=== PATIENT | male | born 1955 | race Caucasian/White ===

== ENCOUNTER 2021-05-16 18:43 | Emergency (ER) | payer OTHER ==
[~2021-05-16] VITALS: Ht 172.7 cm; Wt 79.4 kg
[~2021-05-16 18:43] MED LIST: HYDACE5 PO; HYDACE5325 PO; MUPI1NAS; NAPR500 PO; OSEL75CA PO; PROM25 PO; SULTRIDS PO
[2021-05-16 19:41] LABS: BASOPHILS PERCENT AUTO 0 % (0-2); EOSINOPHILS PERCENT AUTO 0 % (0-6); Hematocrit 38.8 % (37.0-53.0); Hemoglobin 13.1 g/dL (13.5-17.5); IMMATURE GRAN ABSOLUTE AUTO 0.02 K/mm3 (0.00-0.10); IMMATURE GRAN PERCENT AUTO 1 % (0-1); LYMPHOCYTES PERCENT AUTO 14 % (21-46); MONOCYTES ABSOLUTE AUTO 0.25 K/mm3 (0.16-1.47); MONOCYTES PERCENT AUTO 9 % (4-13); Mean Corpuscular HGB 29.6 pg (26.0-34.0); Mean Corpuscular HGB Conc 33.8 g/dL (31.5-36.5); Mean Corpuscular Volume 88 fL (80-100); Mean Platelet Volume 9.6 fL (9.1-12.4); NEUTROPHILS ABSOLUTE AUTO 2.21 K/mm3 (1.96-9.15); NEUTROPHILS PERCENT AUTO 77 % (41-73); Platelet Count 136 K/mm3 (150-400); RDW Coefficient Variation 12.5 % (11.7-14.2); RDW Standard Deviation 40.4 fL (35.1-46.3); Red Blood Cell Count 4.43 M/mm3 (4.30-5.90); White Blood Cell Count 2.88 K/mm3 (4.00-11.30)
[2021-05-16 20:00] LABS: Alanine Aminotransfer (ALT/SGP 31 U/L (12-78); Albumin, Blood 2.7 g/dL (3.4-5.0); Albumin/Globulin Ratio 0.7 (0.8-1.8); Alk Phos 54 U/L (50-136); Anion Gap 6 mmol/L (6-16); Aspartate Aminotrans (AST/SGOT 52 U/L (12-37); Bilirubin, Total 0.4 mg/dL (0.1-1.0); Blood Urea Nitrogen 22 mg/dL (8-24); Bun/Creatinine Ratio 19.6 (12.0-20.0); CO2, Blood 26 mmol/L (21-32); Calcium, Blood 8.2 mg/dL (8.5-10.1); Chloride, Blood 106 mmol/L (98-108); Creatinine, Blood 1.12 mg/dL (0.60-1.20); Glomerular Filtration Rate >60 (60-); Glucose, Blood 113 mg/dL (70-99); Sodium, Blood 138 mmol/L (136-145); Total Protein, Blood 6.7 g/dL (6.4-8.2)
[2021-05-16] MEDS ORDERED: AZIT500 PO (21:46)
== END 2021-05-16 22:52 | disposition home or self-care (01) ==
LOC: ER 18:43
PROVIDERS: Emergency Medicine
DX: U07.1 COVID-19 (principal)
CPT/HCPCS: 36415; 71045; 71260; 80053; 84145; 85025; 93005; 93010; 99285-25; A9270; Q9967

== ENCOUNTER 2021-05-19 09:49 | Inpatient (IN) | payer OTHER ==
[~2021-05-19] VITALS: Ht 172.7 cm; Wt 76.9 kg
[~2021-05-19 09:49] MED LIST changes: +AZIT500 PO
[2021-05-19 10:19] LABS: BASOPHILS ABSOLUTE AUTO 0.01 K/mm3 (0.00-0.23); BASOPHILS PERCENT AUTO 0 % (0-2); EOSINOPHILS PERCENT AUTO 0 % (0-6); Hematocrit 41.8 % (37.0-53.0); Hemoglobin 14.2 g/dL (13.5-17.5); IMMATURE GRAN ABSOLUTE AUTO 0.05 K/mm3 (0.00-0.10); IMMATURE GRAN PERCENT AUTO 1 % (0-1); LYMPHOCYTES ABSOLUTE AUTO 0.63 K/mm3 (0.84-5.20); LYMPHOCYTES PERCENT AUTO 6 % (21-46); MONOCYTES ABSOLUTE AUTO 0.21 K/mm3 (0.16-1.47); MONOCYTES PERCENT AUTO 2 % (4-13); Mean Corpuscular HGB 29.7 pg (26.0-34.0); Mean Corpuscular Volume 87 fL (80-100); Mean Platelet Volume 9.6 fL (9.1-12.4); NEUTROPHILS ABSOLUTE AUTO 9.05 K/mm3 (1.96-9.15); NEUTROPHILS PERCENT AUTO 91 % (41-73); Platelet Count 226 K/mm3 (150-400); RDW Coefficient Variation 12.5 % (11.7-14.2); RDW Standard Deviation 39.8 fL (35.1-46.3); Red Blood Cell Count 4.78 M/mm3 (4.30-5.90); White Blood Cell Count 9.95 K/mm3 (4.00-11.30)
[2021-05-19 10:22] LABS: PCO2 Arterial 33.1 mmHg (35-45); PO2 Arterial 54.9 mmHg (80-100); pH Blood Arterial 7.51 (7.35-7.45)
[2021-05-19 10:49] LABS: Alanine Aminotransfer (ALT/SGP 45 U/L (12-78); Albumin, Blood 2.6 g/dL (3.4-5.0); Albumin/Globulin Ratio 0.5 (0.8-1.8); Alk Phos 64 U/L (50-136); Anion Gap 7 mmol/L (6-16); Aspartate Aminotrans (AST/SGOT 59 U/L (12-37); Bilirubin, Total 0.6 mg/dL (0.1-1.0); Blood Urea Nitrogen 17 mg/dL (8-24); Bun/Creatinine Ratio 16.7 (12.0-20.0); CO2, Blood 28 mmol/L (21-32); Calcium, Blood 8.2 mg/dL (8.5-10.1); Chloride, Blood 103 mmol/L (98-108); Creatinine, Blood 1.02 mg/dL (0.60-1.20); Globulin, Blood 4.8 g/dL (2.2-4.0); Glomerular Filtration Rate >60 (60-); Glucose, Blood 128 mg/dL (70-99); Sodium, Blood 138 mmol/L (136-145); Total Protein, Blood 7.4 g/dL (6.4-8.2); Troponin I <0.015 ng/mL (0.000-0.040)
[2021-05-19 12:48] LABS: U Amphetamine Screen Not Detected; U Barbituate Screen Not Detected; U Benzodiazapine Screen Not Detected; U Buprenorphine Screen Not Detected; U Cannabinoids Screen Not Detected; U Cocaine Screen Not Detected; U Methadone Screen Not Detected; U Methamphetamine Screen Not Detected; U Opiates Screen Not Detected; U Oxycodone Screen Not Detected; U Phencyclidine Screen Not Detected; U Propoxyphene Screen Not Detected
--- NOTE | 2021-05-19 13:55 | NUR ---
Echocardiogram completed.
--- NOTE | 2021-05-19 17:32 | NUR ---
SHIFT SUMMARY; ADMIT FROM ER. TRANSFERRED TO BED FROM ER [facility] WITH STAND BY ASSIST. 02 VIA HIGH FLOW CANNULA AT 10L. SATS 94%. A/A/OX4, VSS, HR SINUS AT 93. INTERMITANT A FLUTTER WHILE IN ER. MEAL TRAY PROVIDED. DENIES FURTHER NEEDS. WILL CONTINUE TO MONITOR AND TREAT UNTIL CHANGE OF SHIFT.
--- NOTE | 2021-05-19 17:43 | NUR ---
SHIFT SUMMARY; ASSUMED CARE AT 0700. A/A/OX4 DURING SHIFT. INTERMITANT AIR VO TO CPAP. AIRVO SETTINGS 60L 94%. REPOSITIONS SELF NEEDED. INSULIN COVERAGE PER EMAR. VSS, USES URINAL AT BEDSIDE. NO ACUTE CHANGES DURING SHIFT. WILL CONTINUE TO MONITOR AND TREAT UNTIL CHANGE OF SHIFT.
[2021-05-20 03:45] LABS: BASOPHILS PERCENT AUTO 0 % (0-2); EOSINOPHILS PERCENT AUTO 0 % (0-6); Hematocrit 38.1 % (37.0-53.0); Hemoglobin 12.9 g/dL (13.5-17.5); IMMATURE GRAN ABSOLUTE AUTO 0.05 K/mm3 (0.00-0.10); IMMATURE GRAN PERCENT AUTO 1 % (0-1); LYMPHOCYTES ABSOLUTE AUTO 0.35 K/mm3 (0.84-5.20); LYMPHOCYTES PERCENT AUTO 6 % (21-46); MONOCYTES ABSOLUTE AUTO 0.17 K/mm3 (0.16-1.47); MONOCYTES PERCENT AUTO 3 % (4-13); Mean Corpuscular HGB 29.7 pg (26.0-34.0); Mean Corpuscular HGB Conc 33.9 g/dL (31.5-36.5); Mean Corpuscular Volume 88 fL (80-100); Mean Platelet Volume 9.7 fL (9.1-12.4); NEUTROPHILS ABSOLUTE AUTO 5.17 K/mm3 (1.96-9.15); NEUTROPHILS PERCENT AUTO 90 % (41-73); Platelet Count 207 K/mm3 (150-400); RDW Coefficient Variation 12.5 % (11.7-14.2); RDW Standard Deviation 40.4 fL (35.1-46.3); Red Blood Cell Count 4.34 M/mm3 (4.30-5.90); White Blood Cell Count 5.74 K/mm3 (4.00-11.30)
[2021-05-20 04:08] LABS: Alanine Aminotransfer (ALT/SGP 49 U/L (12-78); Albumin, Blood 2.2 g/dL (3.4-5.0); Albumin/Globulin Ratio 0.5 (0.8-1.8); Alk Phos 55 U/L (50-136); Anion Gap 4 mmol/L (6-16); Aspartate Aminotrans (AST/SGOT 55 U/L (12-37); Bilirubin, Total 0.6 mg/dL (0.1-1.0); Blood Urea Nitrogen 22 mg/dL (8-24); Bun/Creatinine Ratio 30.7 (12.0-20.0); CO2, Blood 28 mmol/L (21-32); Calcium, Blood 8.4 mg/dL (8.5-10.1); Chloride, Blood 109 mmol/L (98-108); Creatinine, Blood 0.72 mg/dL (0.60-1.20); Globulin, Blood 4.6 g/dL (2.2-4.0); Glomerular Filtration Rate >60 (60-); Glucose, Blood 136 mg/dL (70-99); Magnesium, Blood 2.4 mg/dL (1.6-2.4); Potassium, Blood 4.2 mmol/L (3.5-5.5); Sodium, Blood 141 mmol/L (136-145); Total Protein, Blood 6.8 g/dL (6.4-8.2)
--- NOTE | 2021-05-20 05:30 | NUR ---
SHIFT SUMMARY PT AXO. IN SR. STARTED SHIFT ON 6LNC AND REMAINED T/O MAJORITY OF SHIFT UNTIL 0400 VS. PT OOB TO CHANGE AND DESATTED DOWN INTO 70'S. PT TITRATED UP TO 15L AND REMAINED ON THIS SINCE. PT PRONED DURING THIS TO RECOVER. PT NOW SATTING AT 92% - 95% ON 14L. LUNG SOUNDS UNCHANGED. PT DIAPHORETIC AT BEGINNING OF SHIFT, AFEBRILE. PT STATES THIS STARTED A FEW DAYS AGO. THIS HAS SLOWED DOWN TOWARDS END OF SHIFT. BED BATH COMPLETED. OTHERWISE, PT IN BED RESTING CURRENTLY, PRONED. IN ISOLATION. BED ALARM ON. CALL LIGHT WITHIN REACH.
--- NOTE | 2021-05-20 18:11 | NUR ---
SHIFT SUMMARY; ASSUMED CARE AT 0700, REPORT FROM TOM FERGUSON. A/A/OX4 DURING SHIFT. UP TO CHAIR AT BEDSIDE MOST OF AFTERNOON. BIPAP IN PLACE AT 100% 12/10. DYSPNEA WITH EXERTION WITH 2-3 MIN RECOVERY. BED BATH THIS AM. LINEN CHANGE AND CLEAN PJ BOTTOMS. ORAL CARE BY PT. INTERMITANT AIR VO FOR MEALS AT 100% 60L. MEDICATED PER EMAR THROUGHOUT SHIFT. PRONE ENCOURAGED AND SIDE LYING MOST OF AFTERNOON INCREASED SATS TO 92-94%. WILL CONTINUE TO MONITOR AND TREAT UNTIL CHANGE OF SHIFT.
--- NOTE | 2021-05-20 18:18 | NUR ---
SHIFT SUMMARY; ASSUMED CARE AT 0700, REPORT FROM TOM FERGUSON. A/Sofiya/OX4 DURING SHIFT. UP TO RECLINER CHAIR FOR ENTIRE SHIFT. AMBULATED TO RESTROOM WITH SBA WITH 15L 02, NO DYSPNEA WITH EXERTION. REPOSITIONS SELF NEEDED. NO ACUTE CHANGES, WILL CONTINUE TO MONITOR AND TREAT UNTIL CHANGE OF SHIFT.
[2021-05-21 03:56] LABS: BASOPHILS ABSOLUTE AUTO 0.01 K/mm3 (0.00-0.23); BASOPHILS PERCENT AUTO 0 % (0-2); EOSINOPHILS PERCENT AUTO 0 % (0-6); Hematocrit 38.2 % (37.0-53.0); Hemoglobin 13.1 g/dL (13.5-17.5); IMMATURE GRAN PERCENT AUTO 1 % (0-1); LYMPHOCYTES ABSOLUTE AUTO 0.46 K/mm3 (0.84-5.20); LYMPHOCYTES PERCENT AUTO 3 % (21-46); MONOCYTES ABSOLUTE AUTO 0.38 K/mm3 (0.16-1.47); MONOCYTES PERCENT AUTO 3 % (4-13); Mean Corpuscular HGB 30.1 pg (26.0-34.0); Mean Corpuscular HGB Conc 34.3 g/dL (31.5-36.5); Mean Corpuscular Volume 88 fL (80-100); Mean Platelet Volume 9.9 fL (9.1-12.4); NEUTROPHILS ABSOLUTE AUTO 14.15 K/mm3 (1.96-9.15); NEUTROPHILS PERCENT AUTO 94 % (41-73); Platelet Count 251 K/mm3 (150-400); RDW Coefficient Variation 12.2 % (11.7-14.2); RDW Standard Deviation 39.6 fL (35.1-46.3); Red Blood Cell Count 4.35 M/mm3 (4.30-5.90)
--- NOTE | 2021-05-21 04:14 | NUR ---
SHIFT SUMMARY PT HAS RESTED MOST OF THE NIGHT. HE HAS DENIED NEEDS MOST TIMES WHEN ASKED. HE DENIES SOB OR PAIN. PT RESP APPEAR E/U. LUNGS DIMISNISHED T/O. PT ON 15L O2, AND MAINTAINS SATS ABOVE 92% MOST OF THE NIGHT. THERE HAS BEEN PERIODS DURING THE NIGHT THAT PT WOULD OCCASIONALLY DROP DOWN IN THE MID 80'S. PT APPEARED TO JUST BE RESTING IN BED AND WAS NOT EXERTING HIMSELF WHEN THIS OCCURED. PT ENCOURAGED TO SELF PRONE AND THAT HELPED IN GETTING HIS SATS BACK IN THE 90'S. PT OTHERWISE HAS HAD AN UNEVENTFUL NIGHT. TELE IN PLACE WITH NSR. BED IN LOWEST POSITION, CALL LIGHT WITHIN REACH.
[2021-05-21 04:16] LABS: Alanine Aminotransfer (ALT/SGP 58 U/L (12-78); Albumin, Blood 2.2 g/dL (3.4-5.0); Albumin/Globulin Ratio 0.5 (0.8-1.8); Alk Phos 58 U/L (50-136); Anion Gap 5 mmol/L (6-16); Aspartate Aminotrans (AST/SGOT 54 U/L (12-37); Bilirubin, Total 0.3 mg/dL (0.1-1.0); Blood Urea Nitrogen 29 mg/dL (8-24); Bun/Creatinine Ratio 35.8 (12.0-20.0); CO2, Blood 28 mmol/L (21-32); Calcium, Blood 8.8 mg/dL (8.5-10.1); Chloride, Blood 107 mmol/L (98-108); Creatinine, Blood 0.81 mg/dL (0.60-1.20); Globulin, Blood 4.3 g/dL (2.2-4.0); Glomerular Filtration Rate >60 (60-); Glucose, Blood 123 mg/dL (70-99); Magnesium, Blood 2.4 mg/dL (1.6-2.4); Potassium, Blood 4.2 mmol/L (3.5-5.5); Sodium, Blood 140 mmol/L (136-145); Total Protein, Blood 6.5 g/dL (6.4-8.2)
[2021-05-21 05:08] LABS: International Normalized Ratio 0.99; Prothrombin Time Results 10.7 Sec (9.7-11.5)
--- NOTE | 2021-05-21 05:42 | NUR ---
BIPAP PT SATS DROPPED TO THE MID 80'S ON 15L. PT ENCOURAGED TO SELF PRONE BUT STATES THAT HE IS UNABLE TO SELF PRONE ANYMORE DUE TO CHRONIC BACK PAIN. SATS WOULD NOT COME UP. PT HAD BEEN DOING RELATIVELY WELL ON 15 L PRIOR MAINTAINING SATS AT OUR ABOVE 92% AND WOULD SELF PRONE WHEN NEEDED. RT CALLED AND NOTIFIED AND BIPAP PLACED TO MAINTAIN SATS ABOE 90%. DR JAMES CALLED AND BIPAP ORDER OBTAINED.
--- NOTE | 2021-05-21 09:26 | NUR ---
ENTERED PATIENT ROOM AND PATIENT STATED HE WANTED TO REMOVE HIS BIPAP AND THAT HE WANTED TO LEAVE THE HOSPITAL. HE THEN REMOVED HIS BIPAP MASK AND PUT ON HIS NASAL CANULA. HE REFUSED TO PUT HIS BIPAP BACK ON AND RESTATED THAT HE WAS LEAVING THE HOSPITAL. NOTIFIED OWEN CANNONEER, WHO CALLED DR BERTRAND AND OBTAINED A ONE TIME ORDER FOR 2 MG ATIV[address] IV NOW. DR BERTRAND SAID PATIENT COULD LEAVE [place] IF HE STILL WANTED. INFORMED PATIENT OF THIS AND ADMINISTERED IV ATIVAN. PATIENT AGREED TO STAY IN HOSPITAL FOR NOW BUT REFUSED TO PUT BIPAP BACK ON. O2 FLUCTUATES BETWEEN 82-88 ON 15L NC OXYGEN AT THIS TIME. WILL CONTINUE TO MONITOR.
--- NOTE | 2021-05-21 17:43 | NUR ---
SHIFT SUMMARY PATIENT DROWSY THROUGHOUT SHIFT. DID NOT TOLERATE BIPAP IN AM, REMOVED AND REFUSED TO WEAR. AFTER ATIVAN ABLE TO TOLERATE AIRVO THROUGH AFTERNOON. SOMETIMES PULLS OFF AND DESATS. MONITORING CLOSELY. POOR PO INTAKE OF FOOD AND FLUIDS. REPOSITIONED ON TO LEFT SIDE AND DOES BETTER. DANGLES AT EDGE OF BED TO URINATE IN URINAL.
[2021-05-22 03:55] LABS: BASOPHILS ABSOLUTE AUTO 0.01 K/mm3 (0.00-0.23); BASOPHILS PERCENT AUTO 0 % (0-2); EOSINOPHILS PERCENT AUTO 0 % (0-6); Hematocrit 36.2 % (37.0-53.0); IMMATURE GRAN ABSOLUTE AUTO 0.05 K/mm3 (0.00-0.10); IMMATURE GRAN PERCENT AUTO 1 % (0-1); LYMPHOCYTES PERCENT AUTO 4 % (21-46); MONOCYTES ABSOLUTE AUTO 0.18 K/mm3 (0.16-1.47); MONOCYTES PERCENT AUTO 2 % (4-13); Mean Corpuscular HGB 29.8 pg (26.0-34.0); Mean Corpuscular HGB Conc 33.1 g/dL (31.5-36.5); Mean Corpuscular Volume 90 fL (80-100); Mean Platelet Volume 9.9 fL (9.1-12.4); NEUTROPHILS ABSOLUTE AUTO 8.65 K/mm3 (1.96-9.15); NEUTROPHILS PERCENT AUTO 93 % (41-73); Platelet Count 269 K/mm3 (150-400); RDW Coefficient Variation 12.5 % (11.7-14.2); RDW Standard Deviation 41.2 fL (35.1-46.3); Red Blood Cell Count 4.03 M/mm3 (4.30-5.90); White Blood Cell Count 9.29 K/mm3 (4.00-11.30)
[2021-05-22 04:09] LABS: Anion Gap 4 mmol/L (6-16); Blood Urea Nitrogen 28 mg/dL (8-24); Bun/Creatinine Ratio 34.8 (12.0-20.0); CO2, Blood 26 mmol/L (21-32); Calcium, Blood 8.2 mg/dL (8.5-10.1); Chloride, Blood 111 mmol/L (98-108); Creatinine, Blood 0.81 mg/dL (0.60-1.20); Glomerular Filtration Rate >60 (60-); Glucose, Blood 109 mg/dL (70-99); Magnesium, Blood 2.8 mg/dL (1.6-2.4); Potassium, Blood 4.1 mmol/L (3.5-5.5); Sodium, Blood 141 mmol/L (136-145)
[2021-05-22 04:10] LABS: International Normalized Ratio 1.02
--- NOTE | 2021-05-22 06:02 | NUR ---
SHIFT SUMMARY PT RESTED THROUGH MOST OF NIGHT. LETHARGIC - PLACED ON PRECEDEX GTT @0.3. PT VERY DIFFICULT, AND NOT COMPLIANT NOR COOPERATIVE WITH CARE PLAN. SINCE BIENG ON PRECEDEX, PT ABLE TO WEAR AIRVO TO HELP MAINTAIN SATS >90% - 60L/70%. TELE NSR/SINUS MIGUEL 59. INCONTINENT - CONDOM CATH IN PLACE. PT PULLED OUT IV, LITERALLY RIPPED APART TELE LEADS, PULLED AIRVO OFF, BROKE ARM BAND AND BLUETOOTH OXIMETRY BRACELET. PLACED ON BILATERAL SOFT WRIST RESTRAINTS. TURNING Q2. VSS. CALL LIGHT IWTIN REACH, BED IN LOWEST POSITION. WILL CONTINUE TO MONITOR.
--- NOTE | 2021-05-22 07:32 | NUR ---
[place] of Care Received report from night nurse that over the night the pt ripped off his o2, IV and tele and he desaturated quickly. To help maintain his lines and o2 sats he was placed in bilat soft wrist restraints and was started on precedex. He is resting comfortably now but he did manage to get his airvo off this morning and was desaturating into the 70's. The o2 was replaced and he quickly recovered. He is not currently awake and is resting in bed with his eyes closed. VSS. Precedex is running at 0.3 mcg/kg/hr. condom cath is in place. bed alarm is on for safety and he is visible on the camera.
--- NOTE | 2021-05-22 10:40 | NUR ---
Update Pt loosened his restraints enough to pull off and break his airvo and he also pulled off his condom cath. This nurse placed a non-rebreather mask at 15 lpm and the pt quickly recovered, RT was called and they replaced the AIRVO with a new one. The patient woke up for a brief moment and said that he wanted to leave. Dr Markham was notified and gave the order to DC the precedex which has been done. The AIRVO remains in place @ 60 LPM. He is still visible on the camera and the bed alarm is on for pt safety.
--- NOTE | 2021-05-22 17:16 | NUR ---
Shift Summary Pt has been off the precedex this afternoon and woke up and was a/o x 4. He asked to get up and eat so the restraints were DCD and he was assisted up to the recliner for a meal. He still is insisting that he wants to go home but after speaking with his daughter Sdyni she reports that her grandmother who also lives with them is also positive for COVID and Sydni is unable and unwilling to care for them both at home. Sydni was very unpleasant on the phone stating that "we are diaorganized and no one knows what is going on". This nurse attempted to communicate with the Sydni about her dad's wishes to leave and a course of action but she quickly escalated and the call was ended. Dr Markham is aware of all of this. spoke with the patient and he has agreed for the time being that he will stay until he starts to feel better. Pt is up to the recliner, he has a good appetite and has been cont/inc of urine but has not had a BM today. He is still on the AIRVO at 60 LPM and his O2 saturation is 99%. He is able to make his needs known but he does need reminders to use his call light as he has a tendency to be impulsive.
--- NOTE | 2021-05-22 22:15 | NUR ---
PATIENT PULLING AT LINES, OXYGEN, AND CLOTHING. REDIRECTED X 1 AND TEN MINUTES LATER AFTER RECOVERY PATIENT WAS PULLING AT OXYGEN, ETC AGAIN. IT TOOK NONREBREATHER AND FIVE MINUTES TO RECOVER 2ND TIME, EDUCATION WAS PROVIDED, NEW GOWN, CONDOM CATH IN PLACE AND ATIVAN 1MG PO GIVEN TO HELP CALM PATIENT, NOTED SLIGHT TREMORS WITH EXTENSION OF ARMS.
--- NOTE | 2021-05-23 02:55 | NUR ---
PATIENT RECEIVED NEW ORDERS FOR BILATERAL WRIST RESTRAINTS AT 0110, AND LIBRIUM 25MG PO PRN, PATIENT CURRENT CIWA SCORE 16.
--- NOTE | 2021-05-23 06:29 | NUR ---
PATIENT AROUND 0515 THIS AM BECAME UNCONSOLUABLE AND UNREDIRECTABLE, PULLING AT ALL LINES, MUMBLING, DIAPHORESIS, TREMORS, TALKING TO PEOPLE WHO ARE NOT IN THE ROOM, SENSITIVITY TO LIGHT, INCREASE BLOOD PRESSURE, AND HEART RATE, GAVE ATIVAN PRN 4MG IVP AND PATIENT HAD NO EFFECTIVE RESPONSE, RECEIVED NEW ORDERS TO START PRECEDEX AND STATUS CHANGE TO ICU.
--- NOTE | 2021-05-23 10:32 | NUR ---
CODE STATUS conversation underway with pt's two children- Sydni and Sheng and also pt's sister, Sandra. They have each been given a full update on current status and concerns separately. Plan is that they will confer and call back this am with direction. Pt has repeatedly refused medical care even before showing s/s of substance withdrawl, since he was dx with Covid approx a week ago. Pt does not access healthcare at all and does not have a PCP so medical hx is unknown. 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 WD s/s began in the past 24-48 hours. Pt was brought to the ER for covid s/s, was tested and confirmed, d/c'd home with home O2 earlier in the week. Pt declined to use O2 and was severly hypoxic at home for a number of days. Carlos found him "blue" on am and called 911. Pt was admitted at that time. For the past couple of days pt expressed desire to leave AMA. It was explained that he would likely if he left without tx and support. Pt wanted to leave AMA anyway but no family members available to pick him up or care for him. Carlos is caring for elderly mother of pt with covid at home. When I spoke to carlos yesterday she was clear that her dad would not want to be intubated if his resp failure worsened. Plan is that family members will speak to each other and one of them will call back with further direction on code status. Pt currently ICU status and sedated with precidex for meth withdrawl s/s. He is on 60L O2 and 85%FIO2. Full tx for covid infection cont.
[2021-05-23 11:36] LABS: BASOPHILS ABSOLUTE AUTO 0.01 K/mm3 (0.00-0.23); BASOPHILS PERCENT AUTO 0 % (0-2); EOSINOPHILS PERCENT AUTO 0 % (0-6); Hematocrit 36.8 % (37.0-53.0); Hemoglobin 12.5 g/dL (13.5-17.5); IMMATURE GRAN ABSOLUTE AUTO 0.07 K/mm3 (0.00-0.10); IMMATURE GRAN PERCENT AUTO 1 % (0-1); LYMPHOCYTES PERCENT AUTO 3 % (21-46); MONOCYTES PERCENT AUTO 2 % (4-13); Mean Corpuscular HGB 30.2 pg (26.0-34.0); Mean Corpuscular Volume 89 fL (80-100); Mean Platelet Volume 9.2 fL (9.1-12.4); NEUTROPHILS ABSOLUTE AUTO 8.41 K/mm3 (1.96-9.15); NEUTROPHILS PERCENT AUTO 94 % (41-73); Platelet Count 285 K/mm3 (150-400); RDW Coefficient Variation 12.4 % (11.7-14.2); RDW Standard Deviation 40.7 fL (35.1-46.3); Red Blood Cell Count 4.14 M/mm3 (4.30-5.90); White Blood Cell Count 8.99 K/mm3 (4.00-11.30)
[2021-05-23 12:04] LABS: Alanine Aminotransfer (ALT/SGP 51 U/L (12-78); Albumin/Globulin Ratio 0.5 (0.8-1.8); Alk Phos 63 U/L (50-136); Anion Gap 7 mmol/L (6-16); Aspartate Aminotrans (AST/SGOT 43 U/L (12-37); Bilirubin, Total 0.6 mg/dL (0.1-1.0); Blood Urea Nitrogen 19 mg/dL (8-24); Bun/Creatinine Ratio 22.1 (12.0-20.0); CO2, Blood 25 mmol/L (21-32); Calcium, Blood 7.6 mg/dL (8.5-10.1); Chloride, Blood 109 mmol/L (98-108); Creatinine, Blood 0.86 mg/dL (0.60-1.20); Globulin, Blood 4.1 g/dL (2.2-4.0); Glomerular Filtration Rate >60 (60-); Glucose, Blood 104 mg/dL (70-99); Potassium, Blood 4.1 mmol/L (3.5-5.5); Sodium, Blood 141 mmol/L (136-145); Total Protein, Blood 6.1 g/dL (6.4-8.2)
--- NOTE | 2021-05-23 17:08 | NUR ---
FAMILY CONTACTS for updates Sister-Sandra [phone],[phone], Son-Ricco [phone]. Updated sister, Sandra. I asked that she or pt's children keep the rest of the family/friends updated as multiple friends, "cousins" etc had been calling for updates and requesting to visit. They were informed that no visitors are allowed and that they needed to speak with one of three listed family members for updates. Sandra will cont to summer camp counselor Sydni and Ricco on need for consensus on code status. Both children are caring for other sick family members and are overwhelmed and unable to give direction at this time. Planned with Sandra that if I did not hear from them by late am tomorrow, I would call her again. Sandra states her brother would not want CPR or intubation under these circumstances. Pal Care to follow closely. I have been by the room several times today. Pt sleeping, appears to be restful with precedex administration. He was not agitated, restless or demonstrating nonverbal indicators of distress when I went by. RN states he is nonverbal currently.
--- NOTE | 2021-05-23 19:53 | NUR ---
PT CIWA SCORE 8-15 T/O SHIFT, RECEIVED 2MG ATIVAN PER NOV 1X FOR CIWA SCORE, PT ON 0.2 OF DEXMEDETOMIDINE CONTINUOUSLY, TELEMETRY NOTIFIED TO ALERT STAFF IF HEART RATE MAINTAINS BELOW 50, PT BECAME AGITATED AND TOOK OFF CONDOM CATH AND TELEMETRY LEADS 1X BUT BECAME LETHARGIC AGAIN ONCE SHEETS WERE CHANGED, SOFT RESTRAINTS ON BILATERAL WRISTS ASSESSED Q2H PER PROTOCOL, AIRVO SETTINGS NOT TITRATED DURING SHIFT, PT TOO LETHARGIC TO SAFELY PASS SWALLOW STUDY, GARBLED SPEECH/GRUNTING IN RESPONSE TO AUDIAL AND TACTILE STIMULUS, DIESEL TRAILER MECHANIC UPDATED AT BEDSIDE ON PT'S PRESENTATION, NO OTHER CLINICALLY SIGNIFICANT CHANGES AT THIS TIME
--- NOTE | 2021-05-24 03:06 | NUR ---
AROUND 0201 PATIENT BECAME WIDE AWAKE ABLE TO TELL ME HIS NAME AND BIRTHDAY, UNAWARE OF PLACE STARTED TO GET AGITATED, BROKE HIS RESTRAINTS GRABBED MY ARM WOULDN'T LET GO " GET ME THE F..K OUT OF HERE" UNABLE TO REDIRECT PATIENT, STAFF ASSISTED ON PUTTING NEW BILATERAL WRIST RESTRAINTS, PRECEDEX INCREASED FROM 0.2 TO 0.3; AIRVO INCREASED TO FIO2 90% RECOVERED FROM 82% O2 TO 92% O2 SATURATIONS, BLOOD PRESSURE STABLE MAP 79, HR 67. AT 0245 PATIENT IS RESTING COMFORTABLY IN BED, ABLE TO WAKE WITH VERBAL STIMULI.
[2021-05-24 03:49] LABS: BASOPHILS PERCENT AUTO 0 % (0-2); EOSINOPHILS PERCENT AUTO 0 % (0-6); Hematocrit 34.6 % (37.0-53.0); Hemoglobin 11.1 g/dL (13.5-17.5); IMMATURE GRAN ABSOLUTE AUTO 0.04 K/mm3 (0.00-0.10); IMMATURE GRAN PERCENT AUTO 1 % (0-1); LYMPHOCYTES ABSOLUTE AUTO 0.33 K/mm3 (0.84-5.20); LYMPHOCYTES PERCENT AUTO 6 % (21-46); MONOCYTES ABSOLUTE AUTO 0.15 K/mm3 (0.16-1.47); MONOCYTES PERCENT AUTO 3 % (4-13); Mean Corpuscular HGB 29.7 pg (26.0-34.0); Mean Corpuscular HGB Conc 32.1 g/dL (31.5-36.5); Mean Corpuscular Volume 93 fL (80-100); Mean Platelet Volume 9.4 fL (9.1-12.4); NEUTROPHILS ABSOLUTE AUTO 5.04 K/mm3 (1.96-9.15); NEUTROPHILS PERCENT AUTO 91 % (41-73); Platelet Count 266 K/mm3 (150-400); RDW Coefficient Variation 12.4 % (11.7-14.2); RDW Standard Deviation 42.1 fL (35.1-46.3); Red Blood Cell Count 3.74 M/mm3 (4.30-5.90); White Blood Cell Count 5.56 K/mm3 (4.00-11.30)
[2021-05-24 04:03] LABS: International Normalized Ratio 1.16; Prothrombin Time Results 12.4 Sec (9.7-11.5)
[2021-05-24 04:07] LABS: Anion Gap 6 mmol/L (6-16); Blood Urea Nitrogen 22 mg/dL (8-24); Bun/Creatinine Ratio 28.9 (12.0-20.0); CO2, Blood 26 mmol/L (21-32); Chloride, Blood 111 mmol/L (98-108); Creatinine, Blood 0.76 mg/dL (0.60-1.20); Glomerular Filtration Rate >60 (60-); Glucose, Blood 107 mg/dL (70-99); Magnesium, Blood 2.4 mg/dL (1.6-2.4); Potassium, Blood 3.8 mmol/L (3.5-5.5); Sodium, Blood 143 mmol/L (136-145)
--- NOTE | 2021-05-24 07:31 | NUR ---
UPDATE PT PULLED OFF HIS RESTRAINTS AND HIS IV. PT STATES HE DOES NOT WANT TO BE AT THE HOSPITAL ANYMORE. PRECEDEX IS OFF. PT BROKE HIS NASAL CANNULA TO THE AIRVO. O2 PLACED BACK ON. 02 SATS INCREASE TO 90%. PALLIATIVE CARE CALLED IN TO SEE PT AND FOLLOW HIS WISHES. WILL CONTINUE TO MONITOR
--- NOTE | 2021-05-24 09:30 | NUR ---
I was contacted early this am with report from RN and discharge coordinator of events during the night and morning. I spent time at bedside speaking to pt regarding his desire to go home without respiratory support and without treatment for his COVID infection. He is alert and oriented x 4. He allowed me to replace his airvo nasal cannula while we spoke. Earlier he pulled his IV out, broke his airvo appliance, pulled catheter off. He is adament that he desires no treatment. I asked if he wanted to go home with hospice. I made clear that I was uncertain whether he would make it home without the level of O2 at 60L on airvo that he was requiring here. He had a biox of 88% while I was at the bedside with his O2/airvo in place. Pt insists that he wants to go home and he does not want any of the tx being offered here. I asked if he would be agreeable to hospice seeing him at home since his liklihood of dying from Covid without tx/resp support was very high. He was agreeable to hospice and he was agreeable to comfort measures while we try to get hospice arranged. I contacted both his children and sister. They are not able to meet his care needs at home. I updated Dr and CM on pt status, stated wishes and family situation. Plan is to try to manage pt's air hunger. VO obtained for change in status to comfort care. Comfort care orders entered. His children and sister are well aware of pt's wishes and poor prognosis without treatment.
--- NOTE | 2021-05-24 10:36 | NUR ---
UPDATE: ASSUMED CARE OF PT THIS AM APPROX 0730. PT FOUND TO BE AGITATED, HAS PULLED OUT IV, PULLED OFF CONDOM CATH, BROKE HIS AIRVO, REMOVED SOFT WRIST RESTRAINTS. PRECEDEX INFUSION ON STANDBY. PT STATING HE DOES NOT WANT TO BE HERE AT THE HOSPITAL EVEN WHEN REASONS FOR NEEDING MEDICAL CARE ARE REINFORCED. PT ABLE TO V/U OF MEDICAL STAFF INTENT, BUT CONTINUES TO STATE HE DOES NOT WANT IT. BASHIR MONTOYA RN IN PALLIATIVE CARE, TO AND FROM BEDSIDE TO DISCUSS PLAN OF CARE OPTIONS WITH PT. PT CONSISTENT WITH DESIRE TO LEAVE HOSPITAL AND GO HOME. FAMILY HAS BEEN UPDATED BY BASHIR. AT THIS TIME, PT IS BEING TRANSFERED TO COMFORT CARE WITH PLAN OF HOME WITH HOSPICE. WILL CONTINUE TO MONITOR AND TREAT ACCORDINGLY UNTIL CHANGE OF SHIFT.
--- NOTE | 2021-05-24 13:30 | NUR ---
Family updated. They were offered the option to come visit pt. Sister did not believe that they would come in. Son did not indicate he would come to visit his dad. Carlos at home caring for ill grandma.
--- NOTE | 2021-05-24 14:12 | NUR ---
Comfort Care Case conference with RN who had just been in the room with pt. He is allowing O2 use at this time. He is moaning and exhibiting nonverbal indicators of pain and anxiety. RN administered ativan per eMAR orders. Discussed strategies for s/s managaement and RN updated on my conversations with family.
--- NOTE | 2021-05-24 15:00 | NUR ---
Pal Care note: Primary contact at [facility] should be sister - Sandra [phone] She requests [facility] for for a mortuary. Met sister outside of pt's room before and after her visit. We assisted her with enhanced respiratory isolation PPE and gave instruction on removal as she exits room. Sandra states she was fully vaccinated in [place]. We discussed current status and that his condition has deteriorated rapidly with removal of O2 off and on t/o the day. Pt cont to refuse bipap or other treatment. Pt is becoming somnolent and less responsive. He currently has airvo on but when he awakens at all he removes. Sister prepped on what to expect, s/s of decline noted. She visited at side of bed for several minutes. Pt didn't wake to her voice or presence. Pt had been given one dose of ativan for anxiety earlier, prior to sister's visit. Son has reiterated to Sandra that he does not plan to visit. Sandra did not recommend inviting chucho who has been caring for pt and covid positive/symptomatic & elderly grandma in light of daughter's behavior towards staff this weekend. Sister verbalizes understanding of pt's rapid decline and likely demise in hours to days. She expressed appreciation for staff's care and attempts to treat Eder. She will update two children. They have not kept his mother updated and may choose not to until she recovers from covid.
--- NOTE | 2021-05-24 17:41 | NUR ---
SHIFT SUMMARY: PT CONTINUES ON COMFORT CARE AT THIS TIME, HAS RECEIVED PRN MEDICATIONS FOR AGITATION AND AIR HUNGER, TOLERATING WELL AND RESTING FREE OF AGITATION AT THIS TIME. TURNS AND REPOSITIONING PERFORMED PER PROTOCOL. ATTENDS IN PLACE AND CHANGED NEEDED. PT TRANSITIONED FROM AIRVO TO HIFLO NC AT 10 L/MIN, NO FIDGETING/MOANING/AGITATION NOTED SINCE TRANSITION. BASHIR IN PALLIATIVE CARE CONTINUES INVOLVED IN PT CARE AND FAMILY MEMBERS CONTINUE TO BE UPDATED. WILL CONTINUE TO MONITOR AND TREAT ACCORDINGLY UNTIL CHANGE OF SHIFT.
--- NOTE | 2021-05-25 01:08 | NUR ---
PT IS RESTING COMFORTABLY IN HIS BED, RESP UNLABORED. PT YUMIKO BE MOVED TO ROOM 331. REPORT GIVEN TO LASHELL SANTOS.
--- NOTE | 2021-05-25 02:15 | NUR ---
RECEIVED PT TO FLOOR FROM PCU. PLACED IN ROOM 331 PER MD ORDERS. ISOLATION PRECAUTIONS MAINTAINED. HOB ELEVATED AT APPROX 20 DEGREES. O2 PER NC AT 8L/MIN. CALL LIGHT IN REACH
--- NOTE | 2021-05-25 03:54 | NUR ---
REAL ESTATE AGENCY PRINCIPAL SUMMARY RECEIVED PT FROM PCU EARLIER IN THE SHIFT. PT ON COMFORT CARE. O2 PER NC. HOB ELEVATED. ISOLATION PRECAUTIONS MAINTAINED - DROPLET FOR COVID. DENIED DISTRESS AT [facility]. CALL LIGHT IN REACH.
[2021-05-25 05:28] LABS: BASOPHILS ABSOLUTE AUTO 0.02 K/mm3 (0.00-0.23); BASOPHILS PERCENT AUTO 0 % (0-2); EOSINOPHILS ABSOLUTE AUTO 0.05 K/mm3 (0.00-0.68); EOSINOPHILS PERCENT AUTO 1 % (0-6); Hematocrit 37.6 % (37.0-53.0); Hemoglobin 12.5 g/dL (13.5-17.5); IMMATURE GRAN ABSOLUTE AUTO 0.08 K/mm3 (0.00-0.10); IMMATURE GRAN PERCENT AUTO 1 % (0-1); LYMPHOCYTES ABSOLUTE AUTO 0.74 K/mm3 (0.84-5.20); LYMPHOCYTES PERCENT AUTO 9 % (21-46); MONOCYTES ABSOLUTE AUTO 0.22 K/mm3 (0.16-1.47); MONOCYTES PERCENT AUTO 3 % (4-13); Mean Corpuscular HGB 29.9 pg (26.0-34.0); Mean Corpuscular HGB Conc 33.2 g/dL (31.5-36.5); Mean Corpuscular Volume 90 fL (80-100); Mean Platelet Volume 9.3 fL (9.1-12.4); NEUTROPHILS ABSOLUTE AUTO 7.29 K/mm3 (1.96-9.15); NEUTROPHILS PERCENT AUTO 87 % (41-73); Platelet Count 301 K/mm3 (150-400); RDW Coefficient Variation 12.5 % (11.7-14.2); RDW Standard Deviation 41.7 fL (35.1-46.3); Red Blood Cell Count 4.18 M/mm3 (4.30-5.90)
[2021-05-25 05:40] LABS: International Normalized Ratio 1.21; Prothrombin Time Results 12.9 Sec (9.7-11.5)
[2021-05-25 06:06] LABS: Anion Gap 6 mmol/L (6-16); Blood Urea Nitrogen 23 mg/dL (8-24); Bun/Creatinine Ratio 24.9 (12.0-20.0); CO2, Blood 25 mmol/L (21-32); Calcium, Blood 7.9 mg/dL (8.5-10.1); Chloride, Blood 111 mmol/L (98-108); Creatinine, Blood 0.92 mg/dL (0.60-1.20); Glomerular Filtration Rate >60 (60-); Glucose, Blood 90 mg/dL (70-99); Magnesium, Blood 2.2 mg/dL (1.6-2.4); Potassium, Blood 4.1 mmol/L (3.5-5.5); Sodium, Blood 142 mmol/L (136-145); Troponin I <0.015 ng/mL (0.000-0.040)
--- NOTE | 2021-05-25 08:24 | NUR ---
PT MOANING IN BED, MEDICATED PER NOV WITH ATIVAN 2 MG AND MORPHINE. PT REPOSITIONED.
--- NOTE | 2021-05-25 09:18 | NUR ---
PT MOANING IN BED. PT REPOSITIONED BY PT THIS AM. COMFORT CARE COMPLETED. SPOKE TO PALIATIVE CARE AND HALDOL TO BE ORDERED AND PO TABLETS TO BE DISCONTINUED DUE TO PT UNABLE TO SWALLOW. NON RESPONSIVE AT THIS TIME.
--- NOTE | 2021-05-25 10:47 | NUR ---
Summary of Case conferences and family contact. Spoke to RN earlier and medication changes made in comfort care order set to better treat pt who is currently unresponsive and unable to swallow. He is moaning at times and RN treating per eMAR for s/s q1hr. Discussed use of haldol for restlessness & agitation along with Rxs for air hunger & nonverbal indicators of pain.Updated pt's son, chucho and Sister. Son decided to come in & be at the bedside. He was assisted with enhanced resp isolation PPE prior to entering the room. I will call daughter Sydni from pt's room and hold the phone up to his ear after son's visit. She is unable to come visit due to active covid exposure at home. Plan to remain avaialbe for support to family/updates. Pt appears to be actively dying at this time.
--- NOTE | 2021-05-25 11:40 | NUR ---
Time spent with son after his visit to his dad. Listened and supported and will keep him updated. Comfort care visit made and chucho called from pt's room phone and phone held to Eder's ear. He turned his head towards the phone upon hearing Sydni's voice. Spoke with Sydni before call ended. Again, offered support and listening. Oral care done and pt's face washed, hair combed. He is warm to the touch. RN planning to reposition soon and administer tylenol AR for discomfort. Eder is dusky in color with circumoral cyanosis. He keeps his knees drawn up in bed. He is more comfortable with regular administration of medications per eMAR than he was early this am.
--- NOTE | 2021-05-25 18:11 | NUR ---
SHIFT SUMMARY: PT COMFORT CARE AT THIS TIME, NON RESPONSIVE AT THIS TIME WITH IGLESIA STOKE BREATHING. MEDICATED PER MAR WITH GOOD SIGNS OF RELIEF AFTER HALDOL/MORPHINE GIVEN.
--- NOTE | 2021-05-25 18:38 | NUR ---
PT GIVEN MORPHINE AND HALDOL FOR AIR HUNGER/IGLESIA STOKE BREATHING. PT REPOSITIONED AND MOANED WITH REPOSITIONING. QUIET WHEN AT REST.
--- NOTE | 2021-05-25 19:05 | NUR ---
Third comfort care visit made earlier this joann and updates called to son, chucho and sister again. Pt appears very comfortable when I was in the room last. He has some apnea and agonal breathing at times. In updating chucho, she became upset and stated she was going to come to the hospital to take him home. Sydni was angry, aggressive, making accusations and threats to staff. I was telling her what homegoing would require that we would attempt this in am. Sydni hung up on me before we could finish that conversation. She has not been allowed in to visit due to her active covid household exposure with her dad and grandmother very ill with covid for the past week and ongoing. Jami has been the primary cg for both during this time. She has been disrespectful to other staff earlier in the week also. Screeners notified that Sydni may not visit but son and sister to be allowed any time. RN and mobile heavy equipment operator also notified of Sydni's threatening and disrespecful behavior.
--- NOTE | 2021-05-25 21:42 | NUR ---
RESTING QUIETLY. WILL REPOSITOIN FOR COMFORT. CALL LIGHT IN REACH. ISOLATION PRECAUTIONS MAINTAINED
--- NOTE | 2021-05-26 02:31 | NUR ---
REPOSITIONED. ISOLATOIN PRECAUTIONS MAINTAINED. CALL LIGHT IN REACH
--- NOTE | 2021-05-26 02:31 | NUR ---
REPOSITIONED FOR COMFORT. CALL LIGHT IN REACH
--- NOTE | 2021-05-26 02:33 | NUR ---
WAS CALLING OUT - MOANING. MEDICATED FOR PAIN - SEE MAR FOR DETAILS. WARM BLANKET APPLIED. CALL LIGHT IN REACH. SEEMED TO CALM AND QUIETED DOWN. APPEARS TO BE RESTING
--- NOTE | 2021-05-26 04:18 | NUR ---
WAS MOANING, MEDICATED FOR PAIN - SEE MAR FOR DETAILS
--- NOTE | 2021-05-26 04:48 | NUR ---
ELECTRICAL MAINTENANCE WORKER SUMMARY REMAINS ON COMFORT CARE. REPOSITIONED INTERMITTENTLY FOR COMFORT, HAS BEEN MEDICATED FOR PAIN INTERMITTENTLY THROUGH SHIFT - SEE MAR FOR DETAILS. MOANS AND RESTLESSNESS NOTED. ISOLATION PRECAUTIONS MAINTAINED, CALL LIGHT IN REACH.
--- NOTE | 2021-05-26 09:10 | NUR ---
Case Conference Note Recieved call from Pt's son Sheng requesting an update. Reviewed nurses notes and educated on actively dying process. Sheng expresses appreciation of information and reports plan to come see Pt later today. Spoke with Primary RN Mackenzie and discussed case. Pt currently comfortable with no new concerns reported at this time. Palliative Care will remain available.
--- NOTE | 2021-05-26 09:37 | NUR ---
PT MOANING UPON ENTRY TO ROOM. PT REPOSITIONED, MEDICATEDWITH HALDOL AND TYLENOL SUPPOSITORY. ORAL CARE COMPLETED.
--- NOTE | 2021-05-26 14:43 | NUR ---
Clarification about visitation protocol requested. It is permissible for the principals daughter to have visitation access to her dying father as a compassionate allowance depite her presumptive positive status, as long as she wears an N95 mask and follows strict PPE guidelines while on campus. This was vetted with the ELECTION JUDGE as well. Thank you for this consult. Sylvester Mena ThD
--- NOTE | 2021-05-26 15:01 | NUR ---
PT REMAINS NON-RESPONSIVE. SMALL AMOUNT OF URINE IN ATTENDS WITH MYLA COLORED URINE. ATTENDS CHANGED. PT APPEARS TO BE COMFORTABLE WITH PAINAD AT 0/10. RR ARE UNEVEN/UNLABORED. PT SHOWED NO SIGNS OF PAIN WITH ROLL CHANGE AND REPOSITIONING. ORAL CARE COMPLETED.
--- NOTE | 2021-05-26 16:38 | NUR ---
Eder was stationary, relaxed and by all accounts free of discomfort and well supported. His daughter Jami was present, showing appropriate signs of non-complicated bereavement and anticipatory loss. TOM Mann was also at the bedside showing concern and offering encouragement. I provided compassionate attentiveness, and audible intercession for non-pharmacologic comfort and spiritual benefit. Jami expressed gratitude and verbalized final sentiments. I escorted her to her car after she achieved a reasonable level of closure.
--- NOTE | 2021-05-26 21:03 | NUR ---
PT AT 2025. DR MICHAELS NOTIFIED
--- NOTE | 2021-05-26 21:38 | NUR ---
The patient's spouse Caroline was at the bedside upon entry. Caroline was tearful and expressive of her current felt emotions. Caroline shared her grief related to the pt's passing. Empathic listening and pastoral presence employed. Continued opportunity for Caroline to divulge her emotions. Prayer was extended and Caroline participated accordingly. Upon departure Caroline remained at the bedside to spend a few more moments of reflection.
== END 2021-05-26 22:26 | DRG 177 ==
LOC: ER 09:49 → ERHOLD 11:51 → PCU 11:51 → MEDS 05-25 02:00
PROVIDERS: Family Medicine; Nurse Practitioner Acute Care; Student in an Organized Health Care Education/Training Program; ADMIT Internal Medicine
PROC: 8E0ZXY6 Isolation (ICD-10-PCS; principal; 2021-05-19)
PROC: 3E0333Z Introduction of Anti-inflammatory into Peripheral Vein, Percutaneous Approach (ICD-10-PCS; 2021-05-19)
PROC: 5A0945A Assistance with Respiratory Ventilation, 24-96 Consecutive Hours, High Flow/Velocity Cannula (ICD-10-PCS; 2021-05-19)
PROC: XW033E5 Introduction of Remdesivir Anti-infective into Peripheral Vein, Percutaneous Approach, New Technology Group 5 (ICD-10-PCS; 2021-05-20)
DX: U07.1 COVID-19 (principal); J12.82 Pneumonia due to coronavirus disease 2019; J96.01 Acute respiratory failure with hypoxia; I48.92 Unspecified atrial flutter; E87.3 Alkalosis; G93.49 Other encephalopathy; E88.09 Other disorders of plasma-protein metabolism, not elsewhere classified; Z51.5 Encounter for palliative care; F41.9 Anxiety disorder, unspecified; Z66 Do not resuscitate; D72.810 Lymphocytopenia; R45.1 Restlessness and agitation; Z98.890 Other specified postprocedural states; Z78.1 Physical restraint status
CPT/HCPCS: 36415; 36600; 71045; 71260; 80048; 80053; 82803; 83735; 84145; 84484; 85025; 85379; 85610; 86140; 93005; 93010; 93306; 94660; 94762; 96361; 96372-59; 96374; 96375; 99285-25; A9270; J0153; J1100; J1650; J2060; J7030; J7050; Q9967